=== PATIENT | male | born 1955 | race Caucasian/White ===

== ENCOUNTER 2022-01-12 19:29 | Emergency (ER) | payer OTHER, SELFPAY ==
[2022-01-12 19:38] VITALS: BP 131/58; PULSE 87; RESP 16; TEMP 36.7; O2SAT 99
[2022-01-12] MEDS: Lidocaine/Epinephri/Tetracaine Topical Gel 3 ML (20:25)
--- NOTE | 2022-01-12 20:36 | ED.GENADUL_ITS ---
Discharge Plan Disposition Patient Disposition: HOME Condition: Improving Discharge Details Clinical Impression: Laceration of scalp Primary Care Provider: Felicity,Local ED Provider: Roland Rivers Home Meds and New Rx's Prescriptions: Continued travoprost [Travatan Z] 0.004 % Drops 1 drp DAILY omeprazole 40 mg Capsule,Delayed Release(Dr/Ec) 40 mg PO DAILY pravastatin 80 mg Tablet 80 mg PO DAILY metformin 1,000 mg Tablet 1,000 mg PO BID lisinopril 5 mg Tablet 5 mg PO DAILY albuterol sulfate [Ventolin HFA] 90 mcg/actuation Hfa Aerosol Inhaler 2 puff INHALATION BID timolol maleate 0.5 % Drops, Once Daily DAILY Januvia 100 mg Tablet 100 mg PO DAILY budesonide-formoterol [Symbicort] 80-4.5 mcg/actuation Hfa Aerosol Inhaler 2 puff INHALATION BID Jardiance 10 mg Tablet 10 mg PO DAILY Discharge Instructions Instructions: Laceration (ED) Additional Instructions: Laceration repaired using 3 ciro without difficulty. Tetanus status updated. Please keep the area clean and dry, you may apply antibiotic ointment daily. [id number] Tylenol as directed. Cool compresses every 2 hours for 20 minutes. Please watch for new or worsening symptoms and return to the ER for any concerns. Lastly, ciro removed in approximately 5 days, please follow-up with your primary care provider in [place] and return home. Medical Decision Making 66-year-old gentleman reports that a hammer fell off of a 6 foot ladder and struck him in the head, he is approximately 5 foot 6 inches so that the hammer fell approximately 6 inches. He is not anticoagulated. He reports only minimal discomfort but denies any LOC headache, visual change, neck pain, nausea, vomiting, numbness, tingling, weakness. No clear indication for advanced imaging of the head-brain. Tetanus status not up-to-date. Will update tetanus, apply LET, and repair. 3 ciro placed without difficulty. Patient tolerated well. Standard discharge and return precautions were provided. Patient understands, is agreeable to this plan, and has no additional questions or concerns upon discharge. This documentation was generated using Viaation system, please disregard any oddities of phrase or misspellings. HPI General Mode of arrival: ambulatory . Date/Time Provider Initiated Documentation: 08/10/22 20:14 . Limitations to Documentation: no limitations . Information obtained by: patient . History of Present Illness 66 year old M presents to the emergency department with the chief complaint of Head injury, described as mild, with intensity rated at 2. Quality is described as aching, and is localized to the head. Patient reports no radiation. Patient started experiencing this hour(s) (1.5) and it has been constant. No relieving factors improve symptom(s), No exacerbating factors reported . Patient notes no other symptoms.. Patient did receive the following treatments prior to arrival, none Related Data Home Medications Medication Instructions Recorded Confirmed albuterol sulfate 90 mcg/actuation 2 puff inhalation BID 01/12/22 01/12/22 aerosol inhaler (Ventolin HFA) budesonide-formoterol HFA 80 2 puff inhalation BID 01/12/22 01/12/22 mcg-4.5 mcg/actuation aerosol inhaler (Symbicort) empagliflozin 10 mg tablet 10 mg PO DAILY 01/12/22 01/12/22 (Jardiance) lisinopril 5 mg tablet 5 mg PO DAILY 01/12/22 01/12/22 metformin 1,000 mg tablet 1,000 mg PO BID 01/12/22 01/12/22 omeprazole 40 mg capsule,delayed 40 mg PO DAILY 01/12/22 01/12/22 release pravastatin 80 mg tablet 80 mg PO DAILY 01/12/22 01/12/22 sitagliptin 100 mg tablet (Januvia) 100 mg PO DAILY 01/12/22 01/12/22 timolol maleate 0.5 % once daily drp DAILY 01/12/22 eye drops travoprost 0.004 % eye drops 1 drp DAILY 01/12/22 01/12/22 (Travatan Z) Allergies Allergy/AdvReac Type Severity Reaction Status Date / Time seasonal Allergy Uncoded 01/12/22 19:42 General Stated Complaint: HeadInjury YUE: 3 Review of Systems Constitutional Constitutional: Denies headache(s) and Denies weakness Eyes Eyes: Denies change in vision ENT Ears, Nose, Mouth, and Throat: Denies headache(s) and Denies neck pain Gastrointestinal Gastrointestinal: Denies nausea and Denies vomiting Musculoskeletal Musculoskeletal: Denies neck pain, Denies numbness and Denies tingling Neurologic Neurologic: Denies headache(s), Denies numbness, Denies tingling and Denies weakness Hematologic/Lymphatic Hematologic/Lymphatic: Denies easy bleeding and Denies easy bruising PFSH All Active Problems (Updated 01/12/22 @ 20:57 by HERMINIA Will) Laceration of scalp (Acute) Social History Smoking/Tobacco Use Status: Former Tobacco Use Smoking risk assessment performed?: Yes Substance use type: does not use Exam Const General: cooperative, healthy appearing, comfortable and no acute distress Orientation: alert, awake and oriented x3 [facility] Head: normocephalic Head images: 1. 2 centimeter well approximated laceration. No bleeding, no foreign body, no crepitus. Diffuse mild discomfort. General nose exam: external nose normal Face and sinus: normal facial exam Mouth: moist mucous membranes Eyes General: appearance normal, both eyes and all related structures Conjunctivae: conjunctivae normal Neck Neck: normal visual inspection, full ROM, trachea midline, supple and nontender Resp Effort & Inspection: normal respiratory effort and able to speak in complete sentences Cardio Rate: regular rate Rhythm: regular rhythm Skin General skin exam: no rashes or lesions noted Neuro General: patient alert, patient awake, patient oriented x3, moves all extremities and no focal motor deficits Cranial Nerves: CN's II-XI intact bilaterally Cognition: normal cognition Speech: speech normal Gait: normal gait Motor: muscle tone normal throughout Sensory Exam: no sensory deficits noted Psych Appearance: grossly normal Mental Status: mental status grossly normal Course Vital Signs Vital signs: Vital Signs Temperature 36.7 C 01/12/22 19:38 Pulse 87 01/12/22 19:38 Respiratory Rate 16 01/12/22 19:38 Blood Pressure 131/58 L 01/12/22 19:38 Pulse Oximetry 99 01/12/22 19:38 Temperature 36.7 C 01/12/22 19:38 Temperature Source Temporal Artery Scan 01/12/22 19:38 Pulse 87 01/12/22 19:38 Respiratory Rate 16 01/12/22 19:38 Respiratory Effort 01/12/22 19:38 Blood Pressure 131/58 L 01/12/22 19:38 Blood Pressure Position Sitting 01/12/22 19:38 Pulse Oximetry 99 01/12/22 19:38 Oxygen Delivery Method Room Air 01/12/22 19:38 Oxygen Flow Rate 0 01/12/22 19:38 Pain Level 0 01/12/22 19:38 Procedures Laceration Laceration 1: Site: scalp Side (If applicable): left Size (cm): 2.0 Description: linear Depth: simple, single layer Local Anesthetic: other anesthetic (LET) Amount of anesthesia used (mL): 5 Pre-repair: wound explored, irrigated extensively and deep structures intact Skin layer closed with: other (ciro) Number of sutures: 3
== END 2022-01-12 21:16 | disposition home or self-care (01) ==
PROVIDERS: Emergency Provider Physician Assistant
DX: S01.01XA Laceration without foreign body of scalp, initial encounter (principal); Z87.891 Personal history of nicotine dependence; W20.8XXA Other cause of strike by thrown, projected or falling object, initial encounter
CPT/HCPCS: 12001; 99282

== ENCOUNTER 2022-12-08 12:29 | Emergency (ER) | payer OTHER, MEDICARE, SELFPAY ==
[2022-12-08 12:33] VITALS: BP 131/68; PULSE 78; RESP 18; TEMP 36.7; O2SAT 99
--- NOTE | 2022-12-08 15:40 | ED.GENADUL_ITS ---
Discharge Plan Disposition Patient Disposition: Home Condition: Stable Discharge Details Clinical Impression: Laceration of scalp, Closed head injury Primary Care Provider: Felicity,Local ED Provider: Cinthya English Home Meds and New Rx's Prescriptions: Continued travoprost [Travatan Z] 0.004 % Drops 1 drp DAILY omeprazole 40 mg Capsule,Delayed Release(Dr/Ec) 40 mg PO DAILY pravastatin 80 mg Tablet 80 mg PO DAILY metformin 1,000 mg Tablet 1,000 mg PO BID lisinopril 5 mg Tablet 5 mg PO DAILY albuterol sulfate [Ventolin HFA] 90 mcg/actuation Hfa Aerosol Inhaler 2 puff INHALATION BID timolol maleate 0.5 % Drops, Once Daily DAILY Januvia 100 mg Tablet 100 mg PO DAILY budesonide-formoterol [Symbicort] 80-4.5 mcg/actuation Hfa Aerosol Inhaler 2 puff INHALATION BID Jardiance 10 mg Tablet 10 mg PO DAILY Discharge Instructions Instructions: Laceration (ED), Head Injury (ED) Additional Instructions: Please keep it clean and dry for the next 12 to 24 hours. You may then wash under running soap and water in the shower. No soaking no swimming. Allow to air dry. Please return for any signs of infection including drainage, red streaks swelling or concerns. Also return to the ER for any confusion weakness numbness tingling. Please take Tylenol or Ibuprofen with food every 4-6 hours as needed for pain and swelling. Follow up with primary care provider in 3-5 days. Return to ED sooner if any worsening or concerns. Increase oral fluids. Discharge Data Discharge Date/Time-TO BE ENTERED AT DEPARTURE: 12/08/22 16:14 Medical Decision Making 67-year-old male presents to the ER with chief complaint of scalp laceration which occurred at 11 AM this morning. Patient reports that he was doing some co nstruction and a nail gun was dropped approximately 5 or 6 feet onto his head. He does have approximately 3 inch laceration to the top of his scalp. No loss of consciousness denies any blurry vision or headache. He reports a little bit of neck stiffness but that has resolved. He is alert and oriented no focal neurodeficits noted. Bleeding is controlled at this time. Last tetanus was in March. He has a past medical history of hypertension hypertension GERD. Wound anesthetized with 1.5% lidocaine with epinephrine 6 ciro placed patient tolerated well wound well approximated. Patient is up-to-date on his Tdap. Discussed home care and have sutures removed in 5 to 7 days discussed tricked return instructions and signs of infection. This text was generated using [email or web address] system, please disregard any oddities of phrase or misspellings. HPI General Mode of arrival: ambulatory . Date/Time Provider Initiated Documentation: 12/08/22 14:31 . Limitations to Documentation: no limitations . Information obtained by: patient, RN notes reviewed and old records reviewed . HPI Narrative: 67-year-old male presents to the ER with chief complaint of scalp laceration which occurred at 11 AM this morning. Patient reports that he was doing some construction and a nail gun was dropped approximately 5 or 6 feet onto his head. He does have approximately 3 inch laceration to the top of his scalp. No loss of consciousness denies any blurry vision or headache. He reports a little bit of neck stiffness but that has resolved. He is alert and oriented no focal neurodeficits noted. Bleeding is controlled at this time. Last tetanus was in March. He has a past medical history of hypertension hypertension GERD. Related Data Home Medications Medication Instructions Recorded Confirmed albuterol sulfate 90 mcg/actuation 2 puff inhalation BID 01/12/22 12/08/22 aerosol inhaler (Ventolin HFA) budesonide-formoterol HFA 80 2 puff inhalation BID 01/12/22 12/08/22 mcg-4.5 mcg/actuation aerosol inhaler (Symbicort) empagliflozin 10 mg tablet 10 mg PO DAILY 01/12/22 12/08/22 (Jardiance) lisinopril 5 mg tablet 5 mg PO DAILY 01/12/22 12/08/22 metformin 1,000 mg tablet 1,000 mg PO BID 01/12/22 12/08/22 omeprazole 40 mg capsule,delayed 40 mg PO DAILY 01/12/22 12/08/22 release pravastatin 80 mg tablet 80 mg PO DAILY 01/12/22 12/08/22 sitagliptin phosphate 100 mg 100 mg PO DAILY 01/12/22 12/08/22 tablet (Januvia) timolol maleate 0.5 % once daily drp DAILY 01/12/22 eye drops travoprost 0.004 % eye drops 1 drp DAILY 01/12/22 12/08/22 (Dontae Huynh) Allergies Allergy/AdvReac Type Severity Reaction Status Date / Time seasonal Allergy Mild Uncoded 12/08/22 12:40 General Stated Complaint: Laceration YUE: 4 Review of Systems All systems reviewed & are unremarkable except as noted in HPI and below PFSH All Active Problems (Updated 12/08/22 @ 16:06 by Cinthya English NP) Laceration of scalp (Acute) Closed head injury (Acute) Social History Smoking/Tobacco Use Status: Former Tobacco Use Smoking risk assessment performed?: Yes Substance use type: does not use Exam [facility] Head images: 1. Approximately 3 inch laceration irregular to the top of his scalp. Bleeding controlled. Course Vital Signs Vital signs: Vital Signs Temperature 36.7 C 12/08/22 12:33 Pulse 78 12/08/22 12:33 Respiratory Rate 18 12/08/22 12:33 Blood Pressure 131/68 12/08/22 12:33 Pulse Oximetry 99 12/08/22 12:33 Temperature 36.7 C 12/08/22 12:33 Temperature Source Skin 12/08/22 12:33 Pulse 78 12/08/22 12:33 Respiratory Rate 18 12/08/22 12:33 Blood Pressure 131/68 12/08/22 12:33 Blood Pressure Position Sitting 12/08/22 12:33 Pulse Oximetry 99 12/08/22 12:33 Oxygen Delivery Method Room Air 12/08/22 12:33 Oxygen Flow Rate 0 12/08/22 12:33 Pain Level 1 12/08/22 12:33 Procedures Laceration Laceration 1: Site: scalp Size (cm): 3 Description: irregular Depth: simple, single layer Local Anesthetic: Lidocaine 1% and with Epi Amount of anesthesia used (mL): 3 Pre-repair: wound explored, irrigated extensively and deep structures intact Skin layer closed with: other (6 ciro)
[2022-12-08 16:10] VITALS: BP 147/65; PULSE 86; RESP 14; TEMP 36.6; O2SAT 97
== END 2022-12-08 16:14 | disposition home or self-care (01) ==
PROVIDERS: Emergency Provider Registered Nurse Emergency
DX: S01.01XA Laceration without foreign body of scalp, initial encounter (principal); S09.90XA Unspecified injury of head, initial encounter; W22.8XXA Striking against or struck by other objects, initial encounter
CPT/HCPCS: 12002